=== PATIENT | female | born 1940 | race Native Hawaiian/Other Pacific Islander ===

== ENCOUNTER → 2016-09-03 | Outpatient (CLI) | payer MEDICARE ==
--- NOTE | 2016-09-03 11:39 | MM ---
Reason for exam: additional evaluation requested from prior study. Last mammogram was performed 1 year ago. History: Patient is postmenopausal, has history of breast cancer at age 64, and previous chest radiation therapy. Family history of premenopausal breast cancer in daughter at age 46. Benign left mammotome panel of the left breast, February 28, 2011. Excisional biopsy of the left breast, February 19, 2006. Stereotactic core biopsy of the right breast, 2004. Lumpectomy of the left breast. Radiation therapy of the left breast. Took antineoplastic for 5 years beginning at age 64. Physical Findings: Nurse Summary: 1cm nodule at 1 o'clock (nurse rm). MG 3D Diag Mammo W/Cad AMANUEL Bilateral CC and MLO view(s) were taken. Prior study comparison: September 01, 2015, bilateral MG diagnostic mammo w CAD AMANUEL. August 30, 2014, bilateral MG diagnostic mammo w CAD AMANUEL. The breast tissue is heterogeneously dense. This may lower the sensitivity of mammography. Finding: Architectural distortion in the left breast consistent with prior surgery. No significant changes in finding since September 01, 2015 and August 30, 2014. These results were verbally communicated with the patient and result sheet given to the patient on 09/03/16. ASSESSMENT: Benign, BI-RAD 2 RECOMMENDATION: Follow-up diagnostic mammogram of both breasts in 1 year.
== END ==
LOC: RADMAMWWP 10:40
PROVIDERS: ATTEND Internal Medicine Hematology & Oncology
DX: Z85.3 Personal history of malignant neoplasm of breast (principal)
CPT/HCPCS: G0204; G0279

== ENCOUNTER → 2017-09-04 | Outpatient (CLI) | payer MEDICARE ==
--- NOTE | 2017-09-04 10:11 | MM ---
Reason for exam: additional evaluation requested from prior study. Last mammogram was performed 1 year ago. History: Patient is postmenopausal, has history of breast cancer at age 64, and previous chest radiation therapy. Family history of premenopausal breast cancer in daughter at age 46. Benign left mammotome panel of the left breast, February 28, 2011. Excisional biopsy of the left breast, February 19, 2006. Stereotactic core biopsy of the right breast, 2004. Lumpectomy of the left breast. Radiation therapy of the left breast. Took antineoplastic for 5 years beginning at age 64. Physical Findings: Nurse did not find any significant physical abnormalities on exam. MG Diagnostic Mammo w CAD AMANUEL Bilateral CC and MLO view(s) were taken. Prior study comparison: September 03, 2016, bilateral MG 3d diag mammo w/cad AMANUEL. September 01, 2015, bilateral MG diagnostic mammo w CAD AMANUEL. The breast tissue is heterogeneously dense. This may lower the sensitivity of mammography. There is chronic nodularity bilaterally. There is no dominant lesion. Post operative changes in the left breast. No significant new findings when compared with previous films. These results were verbally communicated with the patient and result sheet given to the patient on 09/04/17. ASSESSMENT: Benign, BI-RAD 2 RECOMMENDATION: Follow-up diagnostic mammogram of both breasts in 1 year.
== END | disposition home or self-care (01) ==
LOC: RADMAMWWP 09:29
PROVIDERS: ATTEND Internal Medicine Hematology & Oncology
DX: Z08 Encounter for follow-up examination after completed treatment for malignant neoplasm (principal); Z85.3 Personal history of malignant neoplasm of breast
CPT/HCPCS: 77066

== ENCOUNTER 2018-04-30 03:32 | Emergency (ER) | payer MEDICARE ==
[2018-04-30 03:41] VITALS: PULSE 78; TEMP 98.3
--- NOTE | 2018-04-30 03:48 | ED ---
Fall HPI - General Chief Complaint: Fall Stated Complaint: fell,hit head Time Seen by Provider: 04/30/18 03:46 Source: patient Mode of arrival: ambulatory - History of Present Illness Initial Comments: is a pleasant 77-year-old female with a history of vertigo who presents the emergency department today for evaluation of right-sided facial injury after a fall at home. Patient reports that this year she was diagnosed with vertigo, she does state that she suffers from vertigo intermittently. Yesterday she was experiencing vertiginous symptoms and did take Antivert but was feeling better when she went to bed so she didn't take a second dose. She reports that she woke up this morning and stood up to get out of bed, she became very dizzy and fell striking the right side of her face on bedside furniture. She did not lose consciousness, she was able to stand and ambulate to her daughter's room to let her know about the fall. Daughter noted patient had some bruising over her right eyebrow and a scratch under her right eye as well as some apparent bleeding around the eyeball which prompted her to come to the ER for evaluation. Patient reports feeling like her face is bruised, she denies any visual changes Johanna eye pain, pain with eye movement or photophobia. Patient denies any current vertiginous symptoms. - Related Data Allergies Allergy/AdvReac Type Severity Reaction Status Date / Time sulfamethoxazole Allergy Rash/Hives Verified 04/30/18 04:12 [From ] trimethoprim [From ] Allergy Rash/Hives Verified 04/30/18 04:12 Review of Systems ROS Statement: Those systems with pertinent positive or pertinent negative responses have been documented in the HPI. ROS Other: All systems not noted in ROS Statement are negative. Past Medical History Past Medical History: Diabetes Mellitus Additional Past Medical History / Comment(s): vertigo, osteoporsis, History of Any Multi-Drug Resistant Organisms: None Reported Past Surgical History: Cholecystectomy, Hernia Repair Past Psychological History: No Psychological Hx Reported Smoking Status: Never smoker Past Alcohol Use History: None Reported Past Drug Use History: None Reported General Exam - General Exam Comments Initial Comments: Physical Exam GENERAL: Patient is well-developed and well-nourished. Patient is nontoxic and well- hydrated and is in no distress. HENT: Contusion to right side of face with swelling and contusion of right eyebrow, superficial abrasion under right eye, TMs normal bilaterally EYES: PERRL, EOMI without pain Right eye with subconjunctival hemorrhage, no blood in the anterior chamber, no hyphema PULMONARY: Unlabored respirations. No audible rales rhonchi or wheezing was noted. CARDIOVASCULAR: There is a regular rate and rhythm without any murmurs gallops or rubs. ABDOMEN: Soft and nontender with normal bowel sounds. SKIN: Skin is clear with no lesions or rashes and otherwise unremarkable. : Deferred NEUROLOGIC: Patient is alert and oriented x3. Moving all extremities spontaneously MUSCULOSKELETAL: Normal extremities with adequate strength and full range of motion. No lower extremity swelling or edema. No calf tenderness. PSYCHIATRIC: Normal psychiatric evaluation. Limitations: no limitations Limitations: no limitations Course Vital Signs 04/30/18 03:35 Temperature 98.3 F Pulse Rate 78 Respiratory 16 Rate Blood Pressure 149/77 O2 Sat by Pulse 100 Oximetry Medical Decision Making - Medical Decision Making Patient was seen and evaluated history is obtained from the patient and daughters at bedside Patient with a history of vertigo had a vertiginous episode resulting in a fall and striking her face patient presents to ER with bruising to the face Patient is not on any anticoagulant or antiplatelet medications Imaging was ordered imaging reveals no acute fractures or intracranial pathology Results were discussed with patient daughters at bedside patient comfortable with plan for discharge home. Return parameters discussed QUESTIONS pertaining to care were answered patient has established care with an resource technician whom she will follow up with for reevaluation of subconjunctival hemorrhage. Disposition Clinical Impression: Fall Disposition: HOME SELF-CARE Condition: Good Instructions: Fall Prevention for Older Adults (ED) Is patient prescribed a controlled substance at d/c from ED?: No Referrals: Evonne Guerra DO [Primary Care Provider] - 1-2 days Time of Disposition: 05:02
--- NOTE | 2018-04-30 04:50 | CT ---
EXAMINATION TYPE: CT brain cornelius garza DATE OF EXAM: 04/30/2018 COMPARISON: None HISTORY: Fall headache. Dizziness. Neck pain. CT DLP: 1005.7 mGycm Automated exposure control for dose reduction was used. TECHNIQUE: CT scan of the head and cervical spine are performed without contrast. FINDINGS: Ventricles of normal size. There is no mass effect nor midline shift. There is no sign of intracranial hemorrhage. The calvarium is intact. There is right frontal scalp soft tissue swelling. The cervical vertebra have fairly normal alignment. There is slight anterior subluxation of C7 in rel ation to T1. The posterior elements are intact. Skull base is intact. Prevertebral soft tissues appea r normal. IMPRESSION: Negative CT scan of the brain. Right frontal scalp hematoma. Negative CT scan of the cervical spine. No fracture. Minor facet arthropathy.
--- NOTE | 2018-04-30 04:53 | CT ---
EXAMINATION TYPE: CT facial bones wo con DATE OF EXAM: 04/30/2018 COMPARISON: None HISTORY: Fall dizziness , eye trauma CT DLP: mGycm Automated exposure control for dose reduction was used. TECHNIQUE: CT scan of the sinuses is performed without contrast, axial images are obtained, coronal r eformatted images are also reviewed. FINDINGS: The mandibular ring is intact. Maxilla is intact. There is no evidence of a blowout fractur e. Nasal bone appears intact. Zygomatic arches appear normal. The orbital margins are intact. There i s no evidence of retro-orbital mass. There is fairly normal aeration of the paranasal sinuses. There is right frontal scalp soft tissue swelling and subcutaneous hematoma. This measures up to 9 mm in th ickness. The frontal bone appears intact. The globes are symmetric. IMPRESSION: Right frontal scalp hematoma and soft tissue swelling. No fracture seen.
[2018-04-30 05:08] VITALS: BP 122/74; RESP 20
== END 2018-04-30 05:08 | disposition home or self-care (01) ==
LOC: EC 03:32
DX: S00.11XA Contusion of right eyelid and periocular area, initial encounter (principal); S00.81XA Abrasion of other part of head, initial encounter; Z88.2 Allergy status to sulfonamides; W06.XXXA Fall from bed, initial encounter; Y92.009 Unspecified place in unspecified non-institutional (private) residence as the place of occurrence of the external cause
CPT/HCPCS: 70450; 70486; 72125; 99283

== ENCOUNTER → 2018-09-09 | Outpatient (CLI) | payer MEDICARE ==
--- NOTE | 2018-09-09 11:53 | MM ---
Reason for exam: additional evaluation requested from prior study. Last mammogram was performed 1 year ago. History: Patient is postmenopausal, has history of breast cancer at age 64, and previous chest radiation therapy. Family history of premenopausal breast cancer in daughter at age 46. Benign left mammotome panel of the left breast, February 28, 2011. Excisional biopsy of the left breast, February 19, 2006. Stereotactic core biopsy of the right breast, 2004. Lumpectomy of the left breast. Radiation therapy of the left breast. Took antineoplastic for 5 years beginning at age 64. Physical Findings: Nurse Summary: 1cm nodule in the left breast at 1 o'clock (nurse mj). MG Diagnostic Mammo w CAD AMANUEL Bilateral CC and MLO view(s) were taken. CC with magnification, LM with magnification, and LM view(s) were taken of the right breast. Prior study comparison: September 04, 2017, bilateral MG diagnostic mammo w CAD AMANUEL. September 03, 2016, bilateral MG 3d diag mammo w/cad AMANUEL. The breast tissue is heterogeneously dense. This may lower the sensitivity of mammography. There is a 5mm group of increasing calcifications in the right lower inner quadrant at middle depth. Other benign appearing bilateral calcifications are seen. No suspicious abnormality in the left breast. These results were verbally communicated with the patient and result sheet given to the patient on 09/09/18. ASSESSMENT: Suspicious, BI-RAD 4 RECOMMENDATION: Stereotactic core biopsy of the right breast. Patient request to talk with Dr. Hurtado regarding recommendation at already scheduled appointment on 09/12/18 at 11:30. PRELIMINARY REPORT CALLED AND FAXED TO DR. HURTADO ON 09/09/18.
== END | disposition home or self-care (01) ==
LOC: RADMAMWWP 10:51
PROVIDERS: ATTEND Internal Medicine Hematology & Oncology
DX: Z08 Encounter for follow-up examination after completed treatment for malignant neoplasm (principal); Z85.3 Personal history of malignant neoplasm of breast
CPT/HCPCS: 77066

== ENCOUNTER → 2018-11-26 | Day surgery (SDC) | payer MEDICARE ==
[2018-11-20 15:45] VITALS: BMI 27.3
[~2018-11-26] MED LIST: ALPRAZolam 0.25 MG TAB PO PRN; DEXAMETHASONE SOD PHOSPHATE 10 MG/ML 1 ML VIAL IV ONE; HEPARIN SODIUM,PORCINE 5,000 UNIT/ML 1 ML VIAL SQ ONE; LACTATED RINGERS 1,000 ML IV ONE; LACTATED RINGERS 1,000 ML IV SCH; LIDOCAINE 1% 20 ML VIAL (10MG/ML) FOR IV START INTRADERMA ONE; LIDOCAINE 1% INJ 10MG/ML (20 ML MDV) SQ ONE; METHYLENE BLUE 10 MG/ML (10 ML VIAL) MISCELLANE ONE; MIDAZOLAM 2 MG/2 ML VIAL ONE; NALOXONE 0.4 MG/ML 1 ML VIAL IV PRN; ONDANSETRON 4 MG/2 ML VIAL IVP ONE; PROPOFOL 10 MG/ML 20 ML VIAL IV ONE; Pre Op ABX Message 1 EACH MISC MISCELLANE ONE; SUCCINYLCHOLINE CHLORIDE 100 MG/5 ML SYR IV ONE; ePHEDrine SULFATE/0.9% NACL/PF 50 MG/5 ML SYRINGE IV ONE; fentaNYL (PF) 50 MCG/ML 2 ML AMP ONE; traMADol 50 MG TAB PO PRN
[2018-11-26 07:15] LABS: Glucose,Whole Blood 174 mg/dL (75-99)
--- NOTE | 2018-11-26 08:13 | P.GSHP ---
History of Present Illness H&P Date: 11/26/18 Chief Complaint: Right breast cancer 77-year-old female known to our service. History of stage I breast cancer left side 2005. Patient underwent left breast lumpectomy with sentinel lymph node biopsy followed by adjuvant radiation. She took endocrine therapy until 2011. Recent mammogram showed a 5 mm area of calcifications right breast lower inner quadrant. Stereotactic core biopsy showed high-grade DCIS. Patient with family history of breast cancer and her daughter. Past Medical History Past Medical History: Cancer, Diabetes Mellitus, GERD/Reflux, Hypertension, Musculoskeletal Disorder, Osteoarthritis (OA), Thyroid Disorder Additional Past Medical History / Comment(s): Vertigo, osteoporsis, hx left breast cancer-2005, hx squamous cell skin cancer. History of Any Multi-Drug Resistant Organisms: None Reported Past Surgical History: Breast Surgery, Cholecystectomy, Hernia Repair, Orthopedic Surgery Additional Past Surgical History / Comment(s): Left breast lumpectomy, bilateral knee replacements, bilateral cataracts removed. Past Anesthesia/Blood Transfusion Reactions: No Reported Reaction Past Psychological History: No Psychological Hx Reported Smoking Status: Never smoker Past Alcohol Use History: None Reported Past Drug Use History: None Reported - Past Family History Sister(s) Family Medical History: Cancer Brother(s) Family Medical History: Cancer Additional Family Medical History / Comment(s): Leukemia. Medications and Allergies Home Medications Medication Instructions Recorded Confirmed Type Acetaminophen [Tylenol] 500 mg PO Q4-6H PRN 09/18/18 11/26/18 History Calcium Carbonate [Calcium] 600 mg PO DAILY 09/18/18 11/26/18 History Cyanocobalamin (Vitamin B-12) 2,000 mcg PO DAILY 09/18/18 11/26/18 History [Vitamin B-12] Ergocalciferol (Vitamin D2) 50,000 unit PO MO 09/18/18 11/26/18 History [Vitamin D2] Latanoprost Ophth [Xalatan 0.005%] 1 drops BOTH EYES HS 09/18/18 11/26/18 History Levothyroxine Sodium [Synthroid] 75 mcg PO QAM 09/18/18 11/26/18 History Linagliptin [Tradjenta] 5 mg PO 1200 09/18/18 11/26/18 History Lisinopril [Zestril] 5 mg PO QAM 09/18/18 11/26/18 History Loratadine [Claritin] 10 mg PO DAILY PRN 09/18/18 11/26/18 History Meclizine [Antivert] 25 mg PO HS 09/18/18 11/26/18 History Lanse-3 Fatty Acids/Fish Oil [Fish 1 each PO DAILY 09/18/18 11/26/18 History Oil 1,000 mg Softgel] Pantoprazole Sodium [Protonix] 40 mg PO QAM 09/18/18 11/26/18 History Propylene Glycol [Systane Complete] 1 drop BOTH EYES QID 09/18/18 11/26/18 History Triamterene-Hctz 75-50Mg [Maxzide 0.5 tab PO QAM 09/18/18 11/26/18 History 75-50] Allergies Allergy/AdvReac Type Severity Reaction Status Date / Time sulfamethoxazole Allergy Rash/Hives Verified 11/26/18 07:22 [From ] trimethoprim [From ] Allergy Rash/Hives Verified 11/26/18 07:22 Surgical - Exam Vital Signs Temp Pulse Resp BP Pulse Ox 97.4 F L 91 20 138/70 99 11/26/18 07:14 11/26/18 07:14 11/26/18 07:14 11/26/18 07:14 11/26/18 07:14 Physical exam: General: Well-developed, well-nourished HEENT: Normocephalic, sclerae nonicteric Right breast: Small mass of recent biopsy site, no adenopathy Left breast: No masses, no adenopathy, previous scarring noted Abdomen: Nontender, nondistended Extremities: No edema Neuro: Alert and oriented Results - Labs Abnormal Lab Results - Last 24 Hours (Table) 11/26/18 Range/Units 07:11 POC Glucose (mg/dL) 174 H (75-99) mg/dL Assessment and Plan (1) Breast cancer, right Narrative/Plan: 77-year-old female with right breast cancer. After discussing alternatives with the patient we decided to proceed with right breast wire localization lumpectomy with sentinel lymph node biopsy/injection at this time. Risks of bleeding, infection, scarring, numbness, nerve injury, possible need for additional surgery reviewed. She understands and wishes to proceed. Current Visit: Yes Status: Acute Code(s): C50.911 - MALIGNANT NEOPLASM OF UNSP SITE OF RIGHT FEMALE BREAST SNOMED Code(s): 877117756
--- NOTE | 2018-11-26 10:33 | NM ---
EXAMINATION TYPE: NM sentinel node injection DATE OF EXAM: 11/26/2018 COMPARISON: NONE HISTORY: Right breast cancer with request for sentinel node injection. TECHNIQUE AND FINDINGS: The procedure of sentinel lymph node injection was explained to the patient. The benefits, alternatives, and risks were discussed. An informed consent was then obtained. Overlying skin is cleaned with sterile alcohol. Following this, 503 uCi Tc99m Tilmanocept was inject ed in the upper outer aspect of the right nipple intradermally. The patient tolerated the procedure well without any immediate complication. The patient was kept in the radiology department for short stay after the procedure and then taken to surgery for surgical p rocedure what is presumed intraoperative gamma probe will be used for sentinel lymph node detection. IMPRESSION: Right breast radiotracer injection for sentinel node localization as above.
[2018-11-26 11:11] VITALS: TEMP 97.8
[2018-11-26 11:18] LABS: Glucose,Whole Blood 177 mg/dL (75-99)
--- NOTE | 2018-11-26 11:18 | P.OP ---
Date of Procedure: 11/26/18 Procedure(s) Performed: REOPERATIVE DIAGNOSIS: Right breast cancer POSTOPERATIVE DIAGNOSIS: Same PROCEDURE: Right Breast wire localization lumpectomy with sentinel lymph node biopsy SURGEON: Rich EBL: Minimal ANESTHESIA: General COMPLICATIONS: None OPERATIVE PROCEDURE: Patient was placed on the operating room table in the supine position. 2 mL of methylene blue was injected into the subareolar space. The breast was then massaged for 5 minutes. The breast was prepped and draped in usual sterile fashion. The right axilla was addressed at that time. The hot spot in the right axilla was identified. A small curvilinear incision was made using the scalpel. Dissection down through the subcutaneous tissues took place using electrocautery. Using the neoprobe I identified a total of 2 sentinel lymph nodes. 1 of these were blue in color. These were both excised. These were not sent for frozen section as they had a normal clinical appearance. The area was inspected and no bleeding was seen. The subcutaneous tissues were closed using 3-0 Vicryl sutures. The skin was closed using 4-0 Monocryl sutures. The wire entrance site was then addressed. This was present at the 3- 4:00 location. A curvilinear incision was made adjacent to the wire entrance site encompassing the previous biopsy scar site. I followed the wire down into the breast tissue. An adequate lumpectomy specimen then took place around the wire. Margins of 1.5-2 cm worth attempted to be achieved. Palpation of the spe cimen revealed no suspicious margins. The specimen was then appropriate 6 colors. In doing so the lateral and medial colors were incorrectly painted and this was labeled on the pathology report. Clips were used to identify the lumpectomy cavity. The clip was confirmed to be within the lumpectomy specimen by radiology. The subcutaneous tissues were closed using 3-0 Vicryl sutures. The skin was closed using a running 4-0 Monocryl stitch. Skin glue and sterile dressings were then applied. DISPOSITION: Stable to recovery room
[2018-11-26 11:21] VITALS: RESP 16
--- NOTE | 2018-11-26 11:24 | MM ---
EXAMINATION TYPE: MG pre op needle loc RT, MG surgical specimen RT DATE OF EXAM: 11/26/2018 COMPARISON: 09/01/2018 and 10/07/2018 exams CLINICAL HISTORY: Right breast cancer with request for needle localization and sentinel node injection TECHNIQUE: Needle localization with wire placement and surgical excision of area of concern in the right breast. FINDINGS: The procedure of needle localization with wire placement and than surgical excision was explained to the patient. Benefits, alternatives, and risks were discussed. An informed consent was then obtained. The shortest pathway for procedure was chosen. Shortest pathway was medial to lateral approach. The overlying skin was prepped and draped in usual sterile fashion. 10 cc of 1% lidocaine was used as anesthetic into the skin and subcutaneous tissue up to the level of area of concern. A 5 cm needle was used. It was placed via a medial to lateral approach under mammographic guidance. Subsequent 90 degrees mammogram show the needle to be in satisfactory position relative to the targeted area. At this point, wire was placed and the needle was withdrawn. The wire was fixed to patient's skin. Images were marked for surgeon. The patient tolerated the procedure well without any immediate complication. The patient was kept in the radiology department for short stay after the procedure and then taken to surgery for surgical excision. Targeted biopsy marker and postbiopsy change and wire are identified in specimen mammogram. The patient was kept in hospital for short stay after the procedure and then discharged home in stable condition. 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 Pathology Results: Malignant A. RIGHT AXILLARY LYMPH NODE #1, BIOPSY: Lymph node negative for metastasis. CK7 and BOUBACAR immunoperoxidase stains are confirmatory (controls appropriate). B. RIGHT AXILLARY LYMPH NODE #2, BIOPSY: Two lymph nodes negative for metastasis. CK7 and BOUBACAR immunoperoxidase stains are confirmatory (controls appropriate). C. RIGHT BREAST, LUMPECTOMY: Ductal carcinoma in situ (DCIS), Grade 2-3, margins negative. DCIS closely approximates the yellow and blue inked margins multifocally (DCIS much less than 1 mm from yellow and blue inked margins). See Surgical Pathology Cancer Case Summary. Recommendation Surgical consult of the right breast. (new margins) MTDD
[2018-11-26] MEDS: HYDROmorphone 0.5 MG/0.5 ML SYRINGE IVP PRN ×2 (11:29→11:40)
[2018-11-26 12:31] VITALS: BP 150/83; PULSE 68
== END | disposition home or self-care (01) ==
LOC: OR 06:32
PROVIDERS: ATTEND Surgery
DX: D05.11 Intraductal carcinoma in situ of right breast (principal); E07.9 Disorder of thyroid, unspecified; E11.9 Type 2 diabetes mellitus without complications; I10 Essential (primary) hypertension; K21.9 Gastro-esophageal reflux disease without esophagitis; M19.90 Unspecified osteoarthritis, unspecified site; Z80.3 Family history of malignant neoplasm of breast; Z85.828 Personal history of other malignant neoplasm of skin; Z88.1 Allergy status to other antibiotic agents; Z88.2 Allergy status to sulfonamides; Z96.653 Presence of artificial knee joint, bilateral; Z90.49 Acquired absence of other specified parts of digestive tract; Z98.42 Cataract extraction status, left eye; Z98.41 Cataract extraction status, right eye; Z79.890 Hormone replacement therapy; Z79.899 Other long term (current) drug therapy
CPT/HCPCS: 19301; 38525; 88342; 88307; 88341; 76098; 19281; 38792; A9520; J2250; J1644; J1100; J0690; J2405; J2001; Q9968; J3010; J0330; J2704; J1170

== ENCOUNTER → 2019-09-15 | Outpatient (CLI) | payer MEDICARE ==
--- NOTE | 2019-09-15 11:23 | MM ---
Reason for exam: additional evaluation requested from prior study. Last mammogram was performed 1 year ago. History: Patient is postmenopausal, has history of breast cancer at age 77, and previous chest radiation therapy. Family history of premenopausal breast cancer in daughter at age 46. Malignant MG pre op needle loc RT of the right breast, November 26, 2018. Lumpectomy of the right breast, November 26, 2018. Malignant MG stereo VAD BX RT of the right breast, October 07, 2018. Benign left mammotome panel of the left breast, February 28, 2011. Excisional biopsy of the left breast, February 19, 2006. Stereotactic core biopsy of the right breast, 2004. Lumpectomy of the left breast. Radiation therapy of the left breast. Taking antineoplastic beginning at age 77. Physical Findings: Nurse did not find any significant physical abnormalities on exam. MG Diagnostic Mammo w CAD AMANUEL Bilateral CC and MLO view(s) were taken. Prior study comparison: September 09, 2018, bilateral MG diagnostic mammo w CAD AMANUEL. September 04, 2017, bilateral MG diagnostic mammo w CAD AMANUEL. The breast tissue is heterogeneously dense. This may lower the sensitivity of mammography. Benign appearing bilateral calcifications. Bilateral post therapy change. No significant new findings when compared with previous films. These results were verbally communicated with the patient and result sheet given to the patient on 09/15/19. ASSESSMENT: Benign, BI-RAD 2 RECOMMENDATION: Follow-up diagnostic mammogram of both breasts in 1 year.
== END | disposition home or self-care (01) ==
LOC: RADMAMWWP 10:14
PROVIDERS: ATTEND Internal Medicine Hematology & Oncology
DX: R92.8 Other abnormal and inconclusive findings on diagnostic imaging of breast (principal); Z85.3 Personal history of malignant neoplasm of breast
CPT/HCPCS: 77066

== ENCOUNTER → 2020-03-29 | Outpatient (CLI) | payer MEDICARE ==
--- NOTE | 2020-03-29 10:54 | MM ---
Reason for exam: follow-up at short interval from prior study. Last mammogram was performed 6 months ago. History: Patient is postmenopausal, has history of breast cancer at age 77, and previous chest radiation therapy. Family history of premenopausal breast cancer in daughter at age 46. Malignant MG pre op needle loc RT of the right breast, November 26, 2018. Lumpectomy of the right breast, November 26, 2018. Malignant MG stereo VAD BX RT of the right breast, October 07, 2018. Benign left mammotome panel of the left breast, February 28, 2011. Excisional biopsy of the left breast, February 19, 2006. Stereotactic core biopsy of the right breast, 2004. Lumpectomy of the left breast. Radiation therapy of the left breast. Taking antineoplastic beginning at age 77. Physical Findings: Nurse Summary: 0.5cm nodule in the left breast at 1 o'clock (nurse mj). MG Diagnostic Mammo LT w CAD CC and MLO view(s) were taken of the left breast. Prior study comparison: September 15, 2019, bilateral MG diagnostic mammo w CAD AMANUEL. September 09, 2018, bilateral MG diagnostic mammo w CAD AMANUEL. The breast tissue is heterogeneously dense. This may lower the sensitivity of mammography. Finding: There are typically benign coarse calcifications in the anterior position of the left breast 1cm from the nipple at BB. Post surgical changes left breast upper outer quadrant. No significant changes in finding since September 09, 2018 and September 15, 2019. These results were verbally communicated with the patient and result sheet given to the patient on 03/29/20. ASSESSMENT: Benign, BI-RAD 2 RECOMMENDATION: Routine screening mammogram of both breasts in 6 months. Back on schedule for September 2020.
--- NOTE | 2020-03-29 10:55 | USB ---
Reason for exam: follow-up at short interval from prior study. History: Patient is postmenopausal, has history of breast cancer at age 77, and previous chest radiation therapy. Family history of premenopausal breast cancer in daughter at age 46. Malignant MG pre op needle loc RT of the right breast, November 26, 2018. Lumpectomy of the right breast, November 26, 2018. Malignant MG stereo VAD BX RT of the right breast, October 07, 2018. Benign left mammotome panel of the left breast, February 28, 2011. Excisional biopsy of the left breast, February 19, 2006. Stereotactic core biopsy of the right breast, 2004. Lumpectomy of the left breast. Radiation therapy of the left breast. Taking antineoplastic beginning at age 77. US Breast Limited LT Left limited breast ultrasound including focal area of concern, retroareolar and axilla demonstrates a calcification at 2 o'clock BB. These results were verbally communicated with the patient and result sheet given to the patient on 03/29/20. ASSESSMENT: Benign, BI-RAD 2 RECOMMENDATION: Routine screening mammogram of both breasts in 6 months. Back on schedule for September 2020.
== END | disposition home or self-care (01) ==
LOC: RADMAMWWP 08:25
PROVIDERS: ATTEND Internal Medicine Hematology & Oncology
DX: R92.8 Other abnormal and inconclusive findings on diagnostic imaging of breast (principal); Z85.3 Personal history of malignant neoplasm of breast
CPT/HCPCS: 77065

== ENCOUNTER → 2020-09-28 | Outpatient (CLI) | payer MEDICARE ==
--- NOTE | 2020-09-29 07:31 | BD ---
EXAMINATION TYPE: Axial Bone Density DATE OF EXAM: 09/28/2020 COMPARISON: DEXA bone scan February 17, 2010 CLINICAL HISTORY: Postmenopausal female. Height: 5 FT 1 1/2 IN Weight: 177 FRAX RISK QUESTIONS: Alcohol (3 or more units per day): NO Family History (Parent hip fracture): NO Glucocorticoids (More than 3mos): NO (Ex: prednisone, prednisolone, methylprednisolone, dexamethasone, and hydrocortisone). History of Fracture in Adulthood: NO Secondary Osteoporosis: 1. Type 1 Diabetes: NO 2. Hyperthyroidism: NO 3. Menopause before 45: NO 4. Malnutrition: NO 5. Chronic liver disease: NO Rheumatoid Arthritis: NO Current Tobacco Use: NO RISK FACTORS HISTORY OF: Surgery to Spine/Hip(right/left)/Wrist (right/left): NO Family History of Osteoporosis: NO Active: YES Diet low in dairy products/other sources of calcium: NO Postmenopausal woman: AGE 52 Take estrogen and/or progesterone medications: NO Lost more than 2 inches in height since high school: YES Poor Health: FAIR MEDICATIONS: Thyroid Medications: YES Which medication: SYNTHROID How Long: UNSURE THINKS OVER 10 YEARS Additional Medications: SYNTHROID, BLOOD PRESSURE, TYPE 2 MED,LISINOPRIL, Additional History: BREAST CANCER 2019 RADIATION/ POOR HISTORIAN EXAM MEASUREMENTS: Bone mineral densitometry was performed using the [employer] System. Bone mineral density as measured about the Lumbar spine is: ----- L1-L4(G/cm2): 1.157 T Score Values are as follows: ----- L2: 0.2 ----- L3: -0.8 ----- L4: -0.7 ----- L1-L4: -0.2 Bone mineral density has: INCREASED 5.7 % since study of: 2009 Bone mineral density about the R hip (g/cm2): 0.935 Bone mineral density about the L hip (g/cm2): 0.915 T Score values are as follows: -----R Neck: -0.7 -----L Neck: -0.9 -----R Total: -0.2 -----L Total: -0.3 Bone mineral density has: INCREASED 1.8 % since study of: 2009 IMPRESSION: Normal (Values between +1 and -1 indicate normal bone mass). Consider repeating this study in 5 year s or sooner if there is some new clinical indication. NOTE: T-SCORE=SD OF THE YOUNG ADULT MEAN.
--- NOTE | 2020-09-30 10:36 | MM ---
Reason for exam: screening (asymptomatic). Last mammogram was performed 6 months ago. History: Patient is postmenopausal, has history of breast cancer at age 77, and previous chest radiation therapy. Family history of premenopausal breast cancer in daughter at age 46. Malignant MG pre op needle loc RT of the right breast, November 26, 2018. Lumpectomy of the right breast, November 26, 2018. Malignant MG stereo VAD BX RT of the right breast, October 07, 2018. Benign left mammotome panel of the left breast, February 28, 2011. Excisional biopsy of the left breast, February 19, 2006. Stereotactic core biopsy of the right breast, 2004. Lumpectomy of the left breast. Radiation therapy of the left breast. Taking antineoplastic beginning at age 77. Physical Findings: A clinical breast exam by your physician is recommended on an annual basis and results should be correlated with mammographic findings. MG Screening Mammo w CAD Bilateral CC and MLO view(s) were taken. XCCL view(s) were taken of the left breast. Prior study comparison: September 15, 2019, bilateral MG diagnostic mammo w CAD [facility]. September 09, 2018, bilateral MG diagnostic mammo w CAD [facility]. There are scattered fibroglandular densities. No significant changes when compared with prior studies. ASSESSMENT: Benign, BI-RAD 2 RECOMMENDATION: Routine screening mammogram of both breasts in 1 year.
== END | disposition home or self-care (01) ==
LOC: RADMAMWWP 12:38
PROVIDERS: ATTEND Internal Medicine Hematology & Oncology
DX: Z12.31 Encounter for screening mammogram for malignant neoplasm of breast (principal); Z78.0 Asymptomatic menopausal state; Z85.3 Personal history of malignant neoplasm of breast
CPT/HCPCS: 77067; 77080

== ENCOUNTER → 2020-11-15 | Outpatient (CLI) | payer MEDICARE ==
--- NOTE | 2020-11-15 13:55 | XR ---
EXAMINATION TYPE: XR ankle limited LT DATE OF EXAM: 11/15/2020 CLINICAL HISTORY: Pain and swelling from fall injury. TECHNIQUE: Frontal and lateral images of the left ankle are obtained. COMPARISON: None. FINDINGS: Moderate to severe soft tissue swelling over the medial malleolus. [id number] soft ti ssue swelling anteriorly. No acute displaced fracture. Underlying demineralization. Ankle mortise sym metry is preserved. IMPRESSION: As above.
== END | disposition home or self-care (01) ==
LOC: RADXRMAIN 13:23
PROVIDERS: ATTEND Physician Assistant Medical
DX: M25.472 Effusion, left ankle (principal)

== ENCOUNTER 2021-04-02 16:22 | Emergency (ER) | payer MEDICARE ==
[2021-04-02 16:47] VITALS: TEMP 98.1
[2021-04-02] MEDS ORDERED: HYDROmorphone 0.5 MG/0.5 ML SYRINGE IVP STA (17:30)
[2021-04-02] MEDS ORDERED: ONDANSETRON 4 MG/2 ML VIAL IVP STA (17:30)
[2021-04-02] MEDS ORDERED: SODIUM CHLORIDE 0.9% 500 ML 500 ML IV STA (17:30)
[2021-04-02 18:21] LABS: Basophils % (A) 0 %; Eosinophils % (A) 0 %; HCT 34.6 % (34.0-46.0); Lymphocytes # (A) 0.7 k/uL (1.0-4.8); Lymphocytes % (A) 7 %; MCHC 34.7 g/dL (31.0-37.0); MCV 92.2 fL (80.0-100.0); Mean Platelet Volume 8.3; Monocytes # (A) 0.6 k/uL (0-1.0); Monocytes % (A) 6 %; Neutrophils # (A) 8.2 k/uL (1.3-7.7); Neutrophils % (A) 85 %; Platelet Count 201 k/uL (150-450); RBC 3.75 m/uL (3.80-5.40); RDW 13.2 % (11.5-15.5); WBC 9.6 k/uL (3.8-10.6)
[2021-04-02 18:33] LABS: Albumin 4.3 g/dL (3.5-5.0); Calcium 9.5 mg/dL (8.4-10.2); Potassium 4.1 mmol/L (3.5-5.1); Total Protein 7.6 g/dL (6.3-8.2)
--- NOTE | 2021-04-02 18:41 | ED ---
Abdominal Pain HPI - General Chief Complaint: Abdominal Pain Stated Complaint: Abdominal Pain Time Seen by Provider: 04/02/21 17:24 Source: patient Mode of arrival: ambulatory Limitations: no limitations - History of Present Illness Initial Comments: 80 year-old female patient presents for evaluation of right upper quadrant pain with radiation through to the back. Reports nausea with a "few" episodes of vomiting. The pain is constant. Started yesterday. States she did have fever earlier in the day. His any constipation or diarrhea. Last bowel movement was this morning and was normal for her. Denies any hematuria, dysuria, urinary frequency, urinary urgency. She has had cholecystectomy in the past. No other abdominal surgeries. She does currently take Arimidex for breast cancer diagnosis. Patient denies any recent rash, cough, shortness of breath, chest pain, numbness, tingling, dizziness, weakness, hematuria, dysuria, urinary urgency, urinary frequency, headache, visual changes, or any other complaints. - Related Data Home Medications Medication Instructions Recorded Confirmed Acetaminophen [Tylenol] 500 mg PO Q4-6H PRN 09/18/18 04/02/21 Ergocalciferol (Vitamin D2) 50,000 unit PO MO 09/18/18 04/02/21 [Vitamin D2] Latanoprost Ophth [Xalatan 0.005%] 1 drops BOTH EYES HS 09/18/18 04/02/21 Levothyroxine Sodium [Synthroid] 75 mcg PO DAILY 09/18/18 04/02/21 Linagliptin [Tradjenta] 5 mg PO DAILY 09/18/18 04/02/21 Loratadine [Claritin] 10 mg PO DAILY PRN 09/18/18 04/02/21 Meclizine [Antivert] 25 mg PO HS 09/18/18 04/02/21 [place]-3 Fatty Acids/Fish Oil [Fish 1 cap PO DAILY 09/18/18 04/02/21 Oil 1,000 mg Softgel] Pantoprazole Sodium [Protonix] 40 mg PO DAILY 09/18/18 04/02/21 Propylene Glycol [Systane Complete] 1 drop BOTH EYES QID PRN 09/18/18 04/02/21 Triamterene-Hctz 75-50Mg [Maxzide 0.5 tab PO DAILY 09/18/18 04/02/21 75-50] lisinopriL [Zestril] 5 mg PO DAILY 09/18/18 04/02/21 Anastrozole 1 mg PO DAILY 04/02/21 04/02/21 Andi/D3/Mag11/Zinc/Any Commodity Buyer/Brad/Bor 1 tab PO DAILY 04/02/21 04/02/21 [Caltrate 600+D Plus Tablet] Cyanocobalamin (Vitamin B-12) 1,000 mcg PO DAILY 04/02/21 04/02/21 [Vitamin B-12] Multivit-Min/Iron/Folic/Lutein 1 tab PO DAILY 04/02/21 04/02/21 [Centrum Silver Women Tablet] Prolia (Unknown Dose) 1 dose SQ Q180D 04/02/21 04/02/21 Repaglinide [Prandin] 2 mg PO BID 04/02/21 04/02/21 Allergies Allergy/AdvReac Type Severity Reaction Status Date / Time sulfamethoxazole Allergy Rash/Hives Verified 04/02/21 18:16 [From ] trimethoprim [From ] Allergy Rash/Hives Verified 04/02/21 18:16 Review of Systems ROS Statement: Those systems with pertinent positive or pertinent negative responses have been documented in the HPI. ROS Other: All systems not noted in ROS Statement are negative. Past Medical History Past Medical History: Cancer, Diabetes Mellitus, GERD/Reflux, Hypertension, Musculoskeletal Disorder, Osteoarthritis (OA), Thyroid Disorder Additional Past Medical History / Comment(s): Vertigo, osteoporsis, hx left br east cancer-2006, hx squamous cell skin cancer. History of Any Multi-Drug Resistant Organisms: None Reported Past Surgical History: Breast Surgery, Cholecystectomy, Hernia Repair, Orthopedic Surgery Additional Past Surgical History / Comment(s): Left breast lumpectomy, bilateral knee replacements, bilateral cataracts removed. Past Anesthesia/Blood Transfusion Reactions: No Reported Reaction Past Psychological History: No Psychological Hx Reported Smoking Status: Never smoker Past Alcohol Use History: None Reported Past Drug Use History: None Reported - Past Family History Sister(s) Family Medical History: Cancer Brother(s) Family Medical History: Cancer Additional Family Medical History / Comment(s): Leukemia. General Exam Limitations: no limitations General appearance: alert, in no apparent distress, other (This is a well- developed, well-nourished elderly female patient in no acute distress.) Respiratory exam: Present: normal lung sounds bilaterally. Absent: respiratory distress, wheezes, rales, rhonchi, stridor Cardiovascular Exam: Present: regular rate, normal rhythm, normal heart sounds. Absent: systolic murmur, diastolic murmur, rubs, gallop, clicks GI/Abdominal exam: Present: soft, tenderness (Midepigastric right upper q uadrant), normal bowel sounds. Absent: distended, guarding, rebound, rigid Neurological exam: Present: alert, oriented X3, CN II-XII intact Psychiatric exam: Present: normal affect, normal mood Skin exam: Present: warm, dry, intact, normal color. Absent: rash Course Vital Signs 04/02/21 04/02/21 16:42 22:05 Temperature 98.1 F Pulse Rate 82 68 Respiratory 16 18 Rate Blood Pressure 120/55 98/56 O2 Sat by Pulse 97 Oximetry Medical Decision Making - Medical Decision Making 80-year-old female patient presenting today for evaluation of right upper quadrant pain with radiation through to her back. Multiple episodes of vomiting over the last 2 days. Physical examination did reveal midepigastric and right upper quadrant abdominal tenderness. Blood sugars 192. Total bilirubin is 4.0, AST 328, a LT 395, alk phos 163, lipase 4839. Urinalysis did show moderate leukocyte esterase with 17 white blood cells. No bacteria. She tested negative for COVID. Ultrasound shows dilated common bile duct, CT abdomen and pelvis without contrast showed dilated common bile duct but no other dilated ducts no other abnormalities. She was given IV fluids. Started on Zosyn. Unfortunately we do not have GI coverage at this time. She will be transferred to . Dr. Dietrich is accepting. - Lab Data Result diagrams: 04/02/21 18:08 04/02/21 18:08 Lab Results 04/02/21 04/02/21 04/02/21 Range/Units 18:08 18:08 18:08 WBC 9.6 (3.8-10.6) k/uL RBC 3.75 L (3.80-5.40) m/uL Hgb 12.0 (11.4-16.0) gm/dL Hct 34.6 (34.0-46.0) % MCV 92.2 (80.0-100.0) fL MCH 32.0 (25.0-35.0) pg MCHC 34.7 (31.0-37.0) g/dL RDW 13.2 (11.5-15.5) % Plt Count 201 (150-450) k/uL MPV 8.3 Neutrophils % 85 % Lymphocytes % 7 % Monocytes % 6 % Eosinophils % 0 % Basophils % 0 % Neutrophils # 8.2 H (1.3-7.7) k/uL Lymphocytes # 0.7 L (1.0-4.8) k/uL Monocytes # 0.6 (0-1.0) k/uL Eosinophils # 0.0 (0-0.7) k/uL Basophils # 0.0 (0-0.2) k/uL Sodium 133 L (137-145) mmol/L Potassium 4.1 (3.5-5.1) mmol/L Chloride 96 L (98-107) mmol/L Carbon Dioxide 24 (22-30) mmol/L Anion Gap 13 mmol/L BUN 26 H (7-17) mg/dL Creatinine 1.34 H (0.52-1.04) mg/dL Est GFR (CKD-EPI)AfAm 43 (>60 ml/min/1.73 sqM) Est GFR (CKD-EPI)NonAf 38 (>60 ml/min/1.73 sqM) Glucose 192 H (74-99) mg/dL Plasma Lactic Acid Otoniel 1.0 (0.7-2.0) mmol/L Calcium 9.5 (8.4-10.2) mg/dL Total Bilirubin 4.0 H (0.2-1.3) mg/dL AST 328 H (14-36) U/L ALT 395 H (4-34) U/L Alkaline Phosphatase 163 H (38-126) U/L Total Protein 7.6 (6.3-8.2) g/dL Albumin 4.3 (3.5-5.0) g/dL Lipase 4839 H (23-300) U/L Urine Color Urine Appearance (Clear) Urine pH (5.0-8.0) Ur Specific Keavy (1.001-1.035) Urine Protein (Negative) Urine Glucose (UA) (Negative) Urine Ketones (Negative) Urine Blood (Negative) Urine Nitrite (Negative) Urine Bilirubin (Negative) Urine Urobilinogen (<2.0) mg/dL Ur Leukocyte Esterase (Negative) Urine RBC (0-5) /hpf Urine WBC (0-5) /hpf Ur Squamous Epith Cells (0-4) /hpf Coronavirus (PCR) (Not Detectd) 04/02/21 04/02/21 Range/Units 18:14 21:07 WBC (3.8-10.6) k/uL RBC (3.80-5.40) m/uL Hgb (11.4-16.0) gm/dL Hct (34.0-46.0) % MCV (80.0-100.0) fL MCH (25.0-35.0) pg MCHC (31.0-37.0) g/dL RDW (11.5-15.5) % Plt Count (150-450) k/uL MPV Neutrophils % % Lymphocytes % % Monocytes % % Eosinophils % % Basophils % % Neutrophils # (1.3-7.7) k/uL Lymphocytes # (1.0-4.8) k/uL Monocytes # (0-1.0) k/uL Eosinophils # (0-0.7) k/uL Basophils # (0-0.2) k/uL Sodium (137-145) mmol/L Potassium (3.5-5.1) mmol/L Chloride (98-107) mmol/L Carbon Dioxide (22-30) mmol/L Anion Gap mmol/L BUN (7-17) mg/dL Creatinine (0.52-1.04) mg/dL Est GFR (CKD-EPI)AfAm (>60 ml/min/1.73 sqM) Est GFR (CKD-EPI)NonAf (>60 ml/min/1.73 sqM) Glucose (74-99) mg/dL Plasma Lactic Acid Otoniel (0.7-2.0) mmol/L Calcium (8.4-10.2) mg/dL Total Bilirubin (0.2-1.3) mg/dL AST (14-36) U/L ALT (4-34) U/L Alkaline Phosphatase (38-126) U/L Total Protein (6.3-8.2) g/dL Albumin (3.5-5.0) g/dL Lipase (23-300) U/L Urine Color Yellow Urine Appearance Clear (Clear) Urine pH 7.0 (5.0-8.0) Ur Specific Keavy 1.011 (1.001-1.035) Urine Protein Trace H (Negative) Urine Glucose (UA) Negative (Negative) Urine Ketones Negative (Negative) Urine Blood Negative (Negative) Urine Nitrite Negative (Negative) Urine Bilirubin 1+ H (Negative) Urine Urobilinogen 4.0 (<2.0) mg/dL Ur Leukocyte Esterase Moderate H (Negative) Urine RBC 1 (0-5) /hpf Urine WBC 17 H (0-5) /hpf Ur Squamous Epith Cells <1 (0-4) /hpf Coronavirus (PCR) Not Detected (Not Detectd) - EKG Data -: EKG Interpreted by [facility]s EKG Comments: EKG obtained at 1846 shows normal sinus rhythm with ventricular rate 87, MS interval 140, QRS duration 80, QT 380, QTc 457. No evidence of ST elevation or depression. - Radiology Data Radiology results: report reviewed, image reviewed CT abdomen and pelvis without contrast was obtained. Report is reviewed in its entirety. Impression by Dr. Lopez shows no evidence of thickened appendix. No renal stone or obstruction. There is chronically dilated extra hepatic bile ducts similar to old exam. Ultrasound of the right upper quadrant abdomen is obtained. Report was reviewed in its entirety. Impression by Dr. Lopez shows dilated common bile duct but no significant dilatation of the intrahepatic bile ducts. No discrete liver mass. Right renal atrophy. No evidence of right renal instruction. No ascites., Bile duct probably not changed compared to old computed tomography scan of 09/23/2013. Disposition Clinical Impression: Choledocholithiasis, History of cholecystectomy Disposition: OTHER INSTITUTION NOT DEFINED Condition: Serious Referrals: Evonne Guerra DO [Primary Care Provider] - 1-2 days - Out of Hospital Transfer - Req. Specs Out of Hospital Transfer - Requested Specifics: Other Emergency Center ([facility])
[2021-04-02 21:15] LABS: Appearance,Urine Clear (Clear); Bilirubin,Urine 1+ (Negative); Blood,Urine Negative (Negative); Color,Urine Yellow; Glucose,Urine (UA) Negative (Negative); Ketones,Urine Negative (Negative); Leukocyte Esterase,Urine Moderate (Negative); Nitrite,Urine Negative (Negative); Protein,Urine Trace (Negative); RBC,Urine 1 /hpf (0-5); Specific Gravity,Urine 1.011 (1.001-1.035); Squamous Epithelial Cell,Urine <1 /hpf (0-4); WBC,Urine 17 /hpf (0-5)
--- NOTE | 2021-04-02 22:05 | US ---
EXAMINATION TYPE: US abdomen limited DATE OF EXAM: 04/02/2021 COMPARISON: US, CT CLINICAL HISTORY: RUQ pain; transaminitis; elevated bili. RUQ pain; transaminitis; elevated bili. EXAM MEASUREMENTS: Liver Length: 14.9 cm Right Kidney: 9.5 x 4.1 x 4.6 cm Limited due to overlying bowel gas. Pancreas: Slightly limited visibility. Liver: Increased echogenicity with coarse echotexture. Gallbladder: Surgically absent. Evidence for sonographic Toscano's sign: No. CBD: Distended CBD was seen on CT 2013; Elongating anechoic area seen today appears to be dilated CBD measuring 3.3 cm AP. Right Kidney: Limited visibility. No hydronephrosis or masses seen. Cortex appears thin. IMPRESSION: Dilated common bile duct but no significant dilation of the intrahepatic bile ducts. No discrete live r mass. Right renal atrophy. No evidence of right renal obstruction. No ascites. Common bile duct pro bably not changed compared to old CT scan of 09/23/2013.
--- NOTE | 2021-04-02 23:12 | CT ---
EXAMINATION TYPE: CT abdomen pelvis wo con DATE OF EXAM: 04/02/2021 COMPARISON: 09/23/2013 HISTORY: Abdominal pain CT DLP: 680.2 mGycm Automated exposure control for dose reduction was used. Images obtained from the diaphragm to the floor the pelvis with no contrast. Lung bases are clear. There is no pleural effusion. Heart size is normal. There is no pericardial eff usion. The gallbladder appears absent. There is markedly dilated left and right hepatic ducts and the common bile duct. Intrahepatic bile ducts however are not significantly dilated. Common hepatic duct measures up to 3.9 cm. Liver and spleen are intact. There is no evidence of pancreatic mass. Stomach is intact. There is 2 cm rounded density right adrenal gland. There is renal mild atrophy. There is no hydroneph rosis. There is no retroperitoneal adenopathy. Ureters are not dilated. There is no evidence of thick ened appendix. There is no mesenteric edema. There is no ascites or free air. There are multiple sigm oid diverticula. There is no diverticulitis. Bladder distends smoothly. There is no inguinal hernia. There is no evidence of a pelvic mass. Uterus is anteverted. There is no free fluid in the pelvis. There are spondylotic changes in the lumbar spine. There is no compression fracture. The bony pelvis is intact. The hip joints are intact. IMPRESSION: No evidence of thickened appendix. No renal stone or obstruction. There is chronically dilated extrah epatic bile ducts similar to old exam.
[2021-04-02] MEDS ORDERED: SODIUM CHLORIDE 0.9% 1,000 ML IV ONE (23:23)
[2021-04-02] MEDS ORDERED: SODIUM CHLORIDE 0.9% 1,000 ML IV SCH (23:30)
[2021-04-02] MEDS ORDERED: PIPERACILLIN-TAZOBACTAM 3.375 GM in SODIUM CHLORIDE 0.9% 100 ML IVPB STA (23:44)
[2021-04-03] MEDS ORDERED: PIPERACILLIN-TAZOBACTAM 3.375 GM in SODIUM CHLORIDE 0.9% 100 ML IVPB SCH ×2
[2021-04-03 00:38] VITALS: BP 118/63; PULSE 83; RESP 16
== END 2021-04-03 01:13 | disposition other institution (70) ==
LOC: EC 16:22
DX: K80.50 Calculus of bile duct without cholangitis or cholecystitis without obstruction (principal)
CPT/HCPCS: 36415; 93005; 80053; 83605; 83690; 85025; 81001; 87086; 87077; 87186; 87635; 76705; 74176; 99285; 96374; 96375 ×2; 96361 ×6; J2543; J2405; J1170; Q9967

== ENCOUNTER → 2021-04-11 | Outpatient (CLI) | payer MEDICARE | END | disposition home or self-care (01) | LOC: LABWHC1 11:39 | PROVIDERS: ATTEND Internal Medicine | DX: E27.8 Other specified disorders of adrenal gland (principal) ==

== ENCOUNTER → 2021-10-02 | Outpatient (CLI) | payer MEDICARE ==
--- NOTE | 2021-10-03 13:36 | MM ---
Reason for Exam: Screening (asymptomatic). Last screening mammogram was performed 12 month(s) ago. Patient History: Menarche at age 13. First Full-Term at age 16. Postmenopausal. Breast cancer, bilateral, age 77. Previous chest radiation therapy. 2004, Stereotactic Core Biopsy on the Right side. Lumpectomy on the Left side. 02/19/2006, Excisional Biopsy on the Left side. 11/26/2018, Lumpectomy on the Right side. 11/26/2018, Malignant Core Biopsy on the right side. 10/07/2018, Malignant Core Biopsy on the right side. 02/28/2011, Benign Core Biopsy on the left side. Radiation Therapy, left. Daughter had breast cancer, age 46. Prior Study Comparison: 09/15/2019 Bilateral Diagnostic Mammogram, [facility]. 03/29/2020 Left Diagnostic Mammogram, [facility]. 09/28/2020 Bilateral Screening Mammogram, [facility]. Tissue Density: The breast tissue is extremely dense which could obscure a lesion on mammography. Findings: Analyzed By CAD. Surgical clips are within the right breast. Postsurgical changes within the posterior left breast. Biopsy clip is within the right breast. No suspicious groups of microcalcifications, spiculated or lobular masses, architectural distortion or other secondary signs of malignancy are mammographically apparent. Overall Assessment: Benign, BI-RAD 2 Management: Screening Mammogram of both breasts in 1 year. A negative mammogram report should not preclude additional follow up of suspicious palpable abnormalities. Patient should continue monthly self breast exam. A clinical breast exam by your physician is recommended on an annual basis and results should be correlated with mammographic findings. Electronically signed and approved by: Orlando Altman D.O. Radiologis
== END | disposition home or self-care (01) ==
LOC: RADMAMWWP 13:05
PROVIDERS: ATTEND Internal Medicine Hematology & Oncology
DX: Z12.31 Encounter for screening mammogram for malignant neoplasm of breast (principal); Z78.0 Asymptomatic menopausal state; Z80.3 Family history of malignant neoplasm of breast
CPT/HCPCS: 77067

== ENCOUNTER → 2022-01-26 | Outpatient (CLI) | payer MEDICARE ==
[2022-01-26 16:23] LABS: BUN/Creat Ratio 25.81 Ratio (12.00-20.00)
[2022-01-26 16:24] LABS: Anion Gap 11.1 mmol/L (10.00-18.00); Blood Urea Nitrogen 33.3 mg/dL (9.0-27.0); Calcium 10.4 mg/dL (8.7-10.3); Carbon Dioxide 26.3 mmol/L (20.0-27.5); Non-African American GFR(CKD) 38.8 (60.0-200.0); Potassium 5.3 mmol/L (3.5-5.5)
== END | disposition home or self-care (01) ==
LOC: LABWHC1 08:28
PROVIDERS: ATTEND Internal Medicine
DX: I10 Essential (primary) hypertension (principal); E03.9 Hypothyroidism, unspecified; E27.8 Other specified disorders of adrenal gland
CPT/HCPCS: 36415; 80048; 82024; 82533; 84443

== ENCOUNTER → 2022-10-03 | Outpatient (CLI) | payer MEDICARE ==
--- NOTE | 2022-10-03 15:26 | BD ---
EXAMINATION TYPE: Axial Bone Density DATE OF EXAM: 10/03/2022 CLINICAL HISTORY: 81 years old Female. ICD-10 CODE: C50.311, Z12.31 Height: 60 Weight: 169 FRAX RISK QUESTIONS: Family History (Parent hip fracture): no History of Fracture in Adulthood: no Secondary Osteoporosis: no RISK FACTORS HISTORY OF: Family History of Osteoporosis: no Active: yes Diet low in dairy products/other sources of calcium: no Postmenopausal woman: yes Lost more than 2 inches in height since high school: yes, was 63 Frequent falls: no Poor Health: no MEDICATIONS: Thyroid Medications: yes Which medication: Synthroid How Lon+ years Osteoporosis Medications: yes Which medication: Prolia How Lon-3 years Additional Medications: yes HBP meds, diabetic meds Additional History: yes radiation for breast cancer 2002 and 2018, melanoma ear 5 yrs.. ago EXAM MEASUREMENTS: Bone mineral densitometry was performed using the [employer] System. Bone mineral density as measured about the Lumbar spine is: ----- L1-L4(G/cm2): 1.155 T Score Values are as follows: ----- L1: 0.2 ----- L2: -0.2 ----- L3: -1.0 ----- L4: 0.0 ----- L1-L4: -0.2 Z Score Values are as follows: ----- L1: 1.7 ----- L2: 1.2 ----- L3: 0.5 ----- L4: 1.5 ----- L1-L4: 1.3 Bone mineral density has: Decreased -0.2% since study of: 09/28/2020 Bone mineral density about the R hip (g/cm2): 0.994 Bone mineral density about the L hip (g/cm2): 1.012 T Score values are as follows: -----R Neck: -0.9 -----L Neck: -1.3 -----R Total: -0.1 -----L Total: 0.0 Z Score values are as follows: -----R Neck: 1.0 -----L Neck: 0.6 -----R Total: 1.7 -----L Total: 1.9 Bone mineral density has: Increased 2.8% since study of: 09/28/2020 FRAX%s: The graph provided illustrates a 7.2% chance for a major osteoporotic fx and a 1.6% chance fo r the hips probability for fx in 10 years time. IMPRESSION: Normal (Values between +1 and -1 indicate normal bone mass). Consider repeating this study in 5 year s or sooner if there is some new clinical indication. NOTE: T-SCORE=SD OF THE YOUNG ADULT MEAN.
--- NOTE | 2022-10-04 09:16 | MM ---
Reason for Exam: Screening (asymptomatic). Last screening mammogram was performed 12 month(s) ago. Patient History: Menarche at age 13. First Full-Term at age 16. Postmenopausal. Breast cancer, bilateral, age 77. Previous chest radiation therapy. 2004, Stereotactic Core Biopsy on the Right side. Lumpectomy on the Left side. 02/19/2006, Excisional Biopsy on the Left side. 11/26/2018, Lumpectomy on the Right side. 11/26/2018, Malignant Core Biopsy on the right side. 10/07/2018, Malignant Core Biopsy on the right side. 02/28/2011, Benign Core Biopsy on the left side. Radiation Therapy, left. Daughter had breast cancer, age 46. Prior Study Comparison: 03/29/2020 Left Diagnostic Mammogram, [facility]. 09/28/2020 Bilateral Screening Mammogram, [facility]. 10/02/2021 Bilateral MG screening mammo w CAD, [facility]. Tissue Density: The breast tissue is heterogeneously dense. This may lower the sensitivity of mammography. Findings: Analyzed By CAD. There is no suspicious group of microcalcifications or new suspicious mass in either breast. Stable postoperative changes right breast. Overall Assessment: Benign, BI-RAD 2 Management: Screening Mammogram of both breasts in 1 year. . Patient should continue monthly self-breast exams. A clinical breast exam by your physician is recommended on an annual basis. This exam should not preclude additional follow-up of suspicious palpable abnormalities. Note on Alicia scores and lifetime risk: 1. A Alicia score greater than 3% is considered moderate risk. If this is the case, consider specialist referral to assess eligibility for a risk reducing agent. 2. If overall lifetime risk for the development of breast cancer is 20% or higher, the patient may qualify for future screening with alternating mammogram and breast MRI. Electronically signed and approved by: Elder Guerra M.D. Radiologis
== END | disposition home or self-care (01) ==
LOC: RADBDWWP 12:20
PROVIDERS: ATTEND Internal Medicine Hematology & Oncology
DX: Z12.31 Encounter for screening mammogram for malignant neoplasm of breast (principal); C50.311 Malignant neoplasm of lower-inner quadrant of right female breast; M85.88 Other specified disorders of bone density and structure, other site; Z78.0 Asymptomatic menopausal state; Z80.3 Family history of malignant neoplasm of breast; Z85.3 Personal history of malignant neoplasm of breast
CPT/HCPCS: 77067; 77080

== ENCOUNTER → 2023-10-07 | Outpatient (CLI) | payer MEDICARE ==
--- NOTE | 2023-10-08 09:49 | MM ---
Reason for Exam: Screening (asymptomatic). Last screening mammogram was performed 12 month(s) ago. Patient History: Menarche at age 13. First Full-Term at age 16. Postmenopausal. Breast cancer, bilateral, age 77. Previous chest radiation therapy. 2004, Stereotactic Core Biopsy on the Right side. Lumpectomy on the Left side. 02/19/2006, Excisional Biopsy on the Left side. 11/26/2018, Lumpectomy on the Right side. 11/26/2018, Malignant Core Biopsy on the right side. 10/07/2018, Malignant Core Biopsy on the right side. 02/28/2011, Benign Core Biopsy on the left side. Radiation Therapy, left. Daughter had breast cancer, age 46. Prior Study Comparison: 09/28/2020 Bilateral Screening Mammogram, [facility]. 10/02/2021 Bilateral MG screening mammo w CAD, [facility]. 10/03/2022 Bilateral MG screening mammo w CAD, [facility]. Tissue Density: The breasts are heterogeneously dense, which may obscure small masses. Findings: Analyzed By CAD. Right breast surgical clips. Right breast: There is no suspicious group of microcalcifications or new suspicious mass. Benign-appearing calcifications right breast. Left breast: There is no suspicious group of microcalcifications or new suspicious mass. Benign-appearing calcifications left breast. Overall Assessment: Negative, BI-RAD 1 Management: Screening Mammogram of both breasts in [address] [facility] will attempt to contact patient to return for supplemental views and ultrasound if indicated. Patient should continue monthly self-breast exams. A clinical breast exam by your physician is recommended on an annual basis. This exam should not preclude additional follow-up of suspicious palpable abnormalities. Note on Alicia scores and lifetime risk: 1. A Alicia score greater than 3% is considered moderate risk. If this is the case, consider specialist referral to assess eligibility for a risk reducing agent. 2. If overall lifetime risk for the development of breast cancer is 20% or higher, the patient may qualify for future screening with alternating mammogram and breast MRI. Electronically signed and approved by: Satnam Gasca DO
== END | disposition home or self-care (01) ==
LOC: RADMAMWWP 10:15
PROVIDERS: ATTEND Internal Medicine Hematology & Oncology
DX: Z12.31 Encounter for screening mammogram for malignant neoplasm of breast (principal); Z78.0 Asymptomatic menopausal state; Z80.3 Family history of malignant neoplasm of breast
CPT/HCPCS: 77067

== ENCOUNTER → 2023-10-22 | Outpatient (CLI) | payer MEDICARE | END | disposition home or self-care (01) | LOC: LABWHC1 11:16 | PROVIDERS: ATTEND Internal Medicine | DX: E03.9 Hypothyroidism, unspecified (principal) | CPT/HCPCS: 36415; 84439; 84443; 84481 ==

== ENCOUNTER → 2024-10-07 | Outpatient (CLI) | payer MEDICARE ==
--- NOTE | 2024-10-07 11:48 | MM ---
Reason for Exam: Screening (asymptomatic). Last screening mammogram was performed 12 month(s) ago. Patient History: Menarche at age 13. First Full-Term at age 16. Postmenopausal. Breast cancer, bilateral, age 77. Previous chest radiation therapy. 2004, Stereotactic Core Biopsy on the Right side. Lumpectomy on the Left side. 02/19/2006, Excisional Biopsy on the Left side. 11/26/2018, Lumpectomy on the Right side. 11/26/2018, Malignant Core Biopsy on the right side. 10/07/2018, Malignant Core Biopsy on the right side. 02/28/2011, Benign Core Biopsy on the left side. Radiation Therapy, left. Daughter had breast cancer, age 46. Prior Study Comparison: 10/02/2021 Bilateral MG screening mammo w CAD, [facility]. 10/03/2022 Bilateral MG screening mammo w CAD, [facility]. 10/07/2023 Bilateral MG screening mammo w CAD, [facility]. Tissue Density: The breasts are heterogeneously dense, which may obscure small masses. Findings: Analyzed By CAD. Right breast surgical clips. Right breast: There is no suspicious group of microcalcifications or new suspicious mass. Benign-appearing calcifications right breast. Left breast: There is no suspicious group of microcalcifications or new suspicious mass. Benign-appearing calcifications left breast. Overall Assessment: Benign, BI-RAD 2 Management: Screening Mammogram of both breasts in [address] [facility] will attempt to contact patient to return for supplemental views and ultrasound if indicated. Patient should continue monthly self-breast exams. A clinical breast exam by your physician is recommended on an annual basis. This exam should not preclude additional follow-up of suspicious palpable abnormalities. Note on Alicia scores and lifetime risk: 1. A Alicia score greater than 3% is considered moderate risk. If this is the case, consider specialist referral to assess eligibility for a risk reducing agent. 2. If overall lifetime risk for the development of breast cancer is 20% or higher, the patient may qualify for future screening with alternating mammogram and breast MRI. [facility], , 10/07/2024 11:46 AM. Electronically signed and approved by: Satnam Gasca DO
== END | disposition home or self-care (01) ==
LOC: RADMAMWWP 10:51
PROVIDERS: ATTEND Internal Medicine Hematology & Oncology
DX: Z12.31 Encounter for screening mammogram for malignant neoplasm of breast (principal); R92.333 Mammographic heterogeneous density, bilateral breasts; Z78.0 Asymptomatic menopausal state; Z80.3 Family history of malignant neoplasm of breast; Z85.3 Personal history of malignant neoplasm of breast; C50.311 Malignant neoplasm of lower-inner quadrant of right female breast; E78.5 Hyperlipidemia, unspecified; M81.0 Age-related osteoporosis without current pathological fracture; E11.9 Type 2 diabetes mellitus without complications; Z71.3 Dietary counseling and surveillance
CPT/HCPCS: 77067

== ENCOUNTER → 2024-10-31 | Outpatient (CLI) | payer MEDICARE | END | disposition home or self-care (01) | LOC: LABWHC1 08:08 | PROVIDERS: ATTEND Internal Medicine | DX: E27.8 Other specified disorders of adrenal gland (principal) | CPT/HCPCS: 36415; 82533 ==